=== PATIENT | female | born 1985 | race Two or more races ===

== ENCOUNTER 2020-01-30 14:09 | Outpatient (CLI) | payer OTHER ==
[2020-01-30] MEDS ORDERED: CYAN1TAB29 PO (14:34)
[2020-01-30] MEDS ORDERED: Vitamin c PO (14:34)
[2020-01-30] MEDS ORDERED: ACET-1600 PO (14:34)
== END 2020-01-30 23:59 | disposition home or self-care (01) ==
LOC: STAR 14:09
PROVIDERS: ATTEND Urology
DX: Z02.9 Encounter for administrative examinations, unspecified (principal)

== ENCOUNTER 2020-02-01 10:12 | Emergency (ER) | payer OTHER ==
[~2020-02-01] VITALS: Ht 162.6 cm; Wt 104.0 kg
[~2020-02-01 10:12] MED LIST: ACET-1600 PO; CYAN1TAB29 PO; Vitamin c PO
--- NOTE | 2020-02-01 10:35 | NUR ---
CAR ESCORT: PT CALLED FOR ROOM, NO ANSWER
--- NOTE | 2020-02-01 10:41 | NUR ---
[employer] TECHNICIAN: PT TO ROOM FROM LOBBY
[2020-02-01] MEDS ORDERED: ONDANSETRON 2MG/ML, 2ML ONE (11:02)
[2020-02-01] MEDS ORDERED: HYDROmorphone 1 MG/ML, 1ML INJ ONE ×2 (11:02→12:11)
[2020-02-01] MEDS: HYDROmorphone 2 MG/ML, 1ML IVPush PRN ×2 (11:08→12:16)
[2020-02-01 11:13] LABS: MICROSCOPIC INDICATED
--- NOTE | 2020-02-01 11:13 | NUR ---
MEDICATED FOR 10/10 RIGHT FLANK, SIDE AND LOWER ABDOMEN/PELVIC CRAMPING PAIN NOTED ON MAR
[2020-02-01 11:29] LABS: BASOPHILS # (AUTO) 0.07 x10^3/uL (0-0.1); BASOPHILS % (AUTO) 1 % (0-1); EOSINOPHILS # (AUTO) 0.24 x10^3/uL (0-0.4); EOSINOPHILS % (AUTO) 2 % (1-7); LYMPHOCYTES # (AUTO) 2.64 x10^3/uL (1-3.4); LYMPHOCYTES % (AUTO) 23 % (22-44); MD NO; MEAN CORPUSCULAR HEMOGLOBIN 27.3 pg (27.0-34.8); MEAN CORPUSCULAR HGB CONC 33.3 g/dL (32.4-35.8); MEAN PLATELET VOLUME 9.5 fL (7.4-10.4); MONOCYTES # (AUTO) 0.82 x10^3/uL (0.2-0.8); MONOCYTES % (AUTO) 7 % (2-9); NEUTROPHILS # (AUTO) 7.88 x10^3/uL (1.8-6.8); NEUTROPHILS % (AUTO) 68 % (42-75); PLATELET COUNT 339 x10^3/uL (130-400); RED CELL DISTRIBUTION WIDTH 17.7 % (9.6-15.2)
[2020-02-01] MEDS ORDERED: SODIUM CHLORIDE FLUSH 10ML SYR IVF ONE (11:30)
[2020-02-01] MEDS ORDERED: ONDANSETRON 2MG/ML, 2ML IVPush ONE (11:30)
[2020-02-01 11:42] LABS: ALANINE AMINOTRANSFERASE 37 U/L (12-78); ALBUMIN 3.8 g/dL (3.4-5.0); ANION GAP 10 mmol/L (5-15); CALCIUM 8.8 mg/dL (8.5-10.1); CHLORIDE 107 mmol/L (98-107); CREATININE 0.84 mg/dL (0.55-1.02)
[2020-02-01 11:46] LABS: ALKALINE PHOSPHATASE 88 U/L (45-117); BILIRUBIN,TOTAL 1.3 mg/dL (0.2-1.0); TOTAL PROTEIN 7.9 g/dL (6.4-8.2)
--- NOTE | 2020-02-01 12:00 | NUR ---
TO CT VIA [facility]
--- NOTE | 2020-02-01 12:16 | NUR ---
ON RETURN FROM CT RE-MEDICATED NOTED ON OCT FOR CONTINUED RIGHT FLANK, SIDE, ABDOMEN/PELVIC PAIN.
[2020-02-01 12:47] LABS: MICROSCOPIC INDICATED
--- NOTE | 2020-02-01 12:47 | NUR ---
PAIN IMPROVED AFTER SECOND DOSE OF DILAUDID, TAKING EDGE OFF PAIN PER PT. STRAIGHT CATH URINE SAMPLE OBTAINED PER ORDERS
[2020-02-01] MEDS ORDERED: CEFTRIAXONE PMX 1GM/50ML 50 ML ONE (13:18)
[2020-02-01 13:30] VITALS: BP 124/82
[2020-02-01] MEDS ORDERED: CEFTRIAXONE PMX 1GM/50ML 50 ML IV ONE (13:30)
== END 2020-02-01 14:16 | disposition home or self-care (01) ==
LOC: ED 13:59
DX: N10 Acute pyelonephritis (principal)
CPT/HCPCS: 36415; 74176; 80053; 81001; 84703; 85025; 87086; 96365; 96375; 96376; 99284; J0696; J1170; J2405; 87186

== ENCOUNTER 2020-02-06 13:26 | Day surgery (SDC) | payer OTHER ==
[~2020-02-06] VITALS: Ht 162.6 cm; Wt 104.3 kg
[2020-02-06] MEDS ORDERED: LACTATED RINGERS 1,000 ML IV SCH (13:43)
[2020-02-06] MEDS ORDERED: CHLORHEXIDINE 15 ML UDC MM ONE (14:00)
[2020-02-06 14:02] VITALS: BP 133/88
[2020-02-06] MEDS ORDERED: PHEN-418 PO (14:06)
[2020-02-06] MEDS ORDERED: CEFD300C37 PO (14:06)
[2020-02-06] MEDS ORDERED: FENTANYL PF 100 MCG/2ML IVPush STA (14:24)
[2020-02-06 14:38] LABS: HCG UR SG 1.027 (1.003-1.030)
[2020-02-06] MEDS ORDERED: SUGAMMADEX 200 MG/2 ML IVPush ONE (15:47)
[2020-02-06] MEDS ORDERED: CEFAZOLIN 1,000 MG ONE (15:47)
[2020-02-06] MEDS ORDERED: KETOROLAC 30 MG/1 ML ONE (15:47)
[2020-02-06] MEDS ORDERED: PROPOFOL 10 MG/ML, 20ML ONE (15:47)
[2020-02-06] MEDS ORDERED: MIDAZOLAM 1 MG/ML, 2ML ONE (15:50)
[2020-02-06] MEDS ORDERED: FENTANYL PF 100 MCG/2ML ONE (15:56)
[2020-02-06] MEDS ORDERED: DEXAMETHASONE 4 MG/ML, 1ML ONE (16:01)
[2020-02-06] MEDS ORDERED: SUCCINYLCHOLINE 20 MG/ML, 10ML ONE (16:02)
[2020-02-06] MEDS ORDERED: ONDANSETRON 2MG/ML, 2ML ONE (16:02)
[2020-02-06] MEDS ORDERED: ROCURONIUM 10MG/ML,5ML ONE (16:02)
[2020-02-06] MEDS ORDERED: ACETAMINOPHEN 325 MG TABLET PO PRN (16:30)
[2020-02-06] MEDS ORDERED: HYDROcodone/APAP 7.5-325MG/15ML UDC PO PRN (16:30)
[2020-02-06] MEDS ORDERED: KETOROLAC 30 MG/1 ML IVPush PRN (16:30)
[2020-02-06] MEDS ORDERED: HYDROmorphone 1 MG/ML, 1ML INJ IVPush PRN (16:30)
[2020-02-06] MEDS ORDERED: morphine SULFATE 10 MG/ML, 1ML IVPush PRN (16:30)
[2020-02-06] MEDS ORDERED: OXYcodone 5 MG/5 ML ORAL.SOL UDC PO PRN (16:30)
[2020-02-06] MEDS ORDERED: FENTANYL PF 100 MCG/2ML IV PRN (16:30)
[2020-02-06] MEDS ORDERED: OMNIPAQUE 350 MG/ML, 50 ML BOTTLE ONE (16:47)
== END 2020-02-06 18:50 | disposition home or self-care (01) ==
LOC: OR 13:26
PROVIDERS: ATTEND Urology
DX: N13.2 Hydronephrosis with renal and ureteral calculous obstruction (principal); Z11.59 Encounter for screening for other viral diseases; T83.192A Other mechanical complication of indwelling ureteral stent, initial encounter; N81.10 Cystocele, unspecified; Y83.8 Other surgical procedures as the cause of abnormal reaction of the patient, or of later complication, without mention of misadventure at the time of the procedure
CPT/HCPCS: 36415; 52353; 74420; 81025; 87635; C1769; J0330; J0690; J1100; J1885; J2250; J2405; J2704; J3010; J7120; Q9967